=== PATIENT | female | born 1985 | race African-American/Black ===

== ENCOUNTER 2022-07-26 09:43 | Emergency (ER) | payer BC ==
[~2022-07-26] VITALS: Ht 167.6 cm; Wt 74.0 kg
[2022-07-26 09:46] VITALS: BP 167/74
[2022-07-26] MEDS ORDERED: LIDOCAINE HCL/EPINEPHRINE 1%-EPI 1:100,000 20 ML VIAL INFIL ONE (10:00)
[2022-07-26] MEDS ORDERED: TETANUS, DIPHTHERIA, PERTUSSIS VAC/PF 0.5ML (>10YR OLD) IM ONE (10:00)
[2022-07-26] MEDS ORDERED: ACETAMINOPHEN 325MG TABLET PO ONE (10:30)
[2022-07-26] MEDS ORDERED: LIDOCAINE HCL/EPINEPHRINE 1%-EPI 1:100,000 10 ML VIAL IJ SCH (10:30)
== END 2022-07-26 11:17 | disposition home or self-care (01) ==
LOC: ER 09:43
DX: S61.512A Laceration without foreign body of left wrist, initial encounter (principal); W45.8XXA Other foreign body or object entering through skin, initial encounter; Y93.89 Activity, other specified; Y92.89 Other specified places as the place of occurrence of the external cause; Y99.8 Other external cause status
CPT/HCPCS: 12001; 73110; 90471; 90715; 99283; J3490